=== PATIENT | male | born 1995 | race Two or more races ===

== ENCOUNTER 2017-03-12 21:20 | Emergency (ER) | payer OTHER ==
[~2017-03-12] VITALS: Ht 167.6 cm; Wt 77.1 kg
[2017-03-12 21:20] VITALS: BP 132/88
[2017-03-12] MEDS ORDERED: Acetaminophen 500mg (ES) tab ORAL ONE (21:45)
[2017-03-12] MEDS ORDERED: Phenytoin 100mg cap ORAL ONE (23:00)
--- NOTE | 2017-03-12 23:02 | Emergency Room Report ---
History of Present Illness General Chief Complaint: Seizure Source: Patient, EMS Present Illness HPI Is a 22-year-old male with a history of seizure. He's on 2 different medication for it. He is not driving because of seizure activity. He presents with chief complaint of seizure. He had a tonic-clonic seizure activity at work. Lasted about 2 minutes. He does have tongue abrasion. No incontinence of bowel or urine. No postictal period. No other complaint. Allergies: Coded Allergies: No Known Allergies (Unverified , 03/12/17) Patient History Past Medical History: see triage record, old chart reviewed, seizures Past Surgical History: other Pertinent Family History: none Social History: Denies: smoking Immunizations: other Reviewed Nursing Documentation: PMH: Agreed, PSxH: Agreed Nursing Documentation-PMH Past Medical History: No History, Except For Review of Systems Eye: Denies: blurred vision, eye pain ENT: Denies: ear pain, nose congestion, throat swelling Respiratory: Denies: cough, shortness of breath Cardiovascular: Denies: chest pain, palpitations Gastrointestinal: Denies: abdominal pain, diarrhea, nausea, vomiting Musculoskeletal: Denies: back pain, joint pain Skin: Denies: rash Neurological: Denies: headache, numbness Endocrine: Denies: increased thirst, increased urine Hematologic/Lymphatic: Denies: easy bruising All Other Systems: negative except mentioned in HPI Physical Exam Vital Signs Date Time Temp Pulse Resp B/P Pulse Ox O2 Delivery O2 Flow Rate FiO2 03/12/17 21:12 98.2 120 17 132/88 100 Room Air vitals with tachycardia Sp02 EP Interpretation: reviewed, normal General Appearance: well appearing, no apparent distress, alert Head: normocephalic, atraumatic Eyes: bilateral eye EOMI, bilateral eye PERRL ENT: hearing grossly normal, normal pharynx, other - Tongue abrasion on the left Neck: full range of motion, supple, no meningismus Respiratory: chest non-tender, lungs clear, normal breath sounds Cardiovascular #1: regular rate, rhythm, no murmur Gastrointestinal: normal bowel sounds, non tender, no mass, no organomegaly, no bruit, non-distended Musculoskeletal: back normal, gait/station normal, normal range of motion Psychiatric: mood/affect normal Skin: warm/dry Medical Decision Making Diagnostic Impression: Primary Impression: Epileptic seizure, generalized ER Course Patient presents with seizure activity secondary to subtherapeutic Dilantin level. He is back to baseline. Heart rate is an 80. I gave him a load of Dilantin here. We'll discharge home. Chest X-Ray Diagnostic Results Chest X-Ray Ordered: No Last Vital Signs Date Time Temp Pulse Resp B/P Pulse Ox O2 Delivery O2 Flow Rate FiO2 03/12/17 21:12 98.2 120 17 132/88 100 Room Air Status: improved Disposition: HOME, SELF-CARE Condition: Stable Patient Instructions: Seizure, Adult Additional Instructions: Take your seizure medication regularly. Followup with your Dr. in 3-5 days. Return if worse. RODRIGUEZ LEONE M.D. Mar 12, 2017 23:02
[2017-03-12 23:15] VITALS: BP 129/65
== END 2017-03-12 23:15 | disposition home or self-care (01) ==
LOC: EDBD 21:20 → EMR 23:00
DX: G40.909 Epilepsy, unspecified, not intractable, without status epilepticus (principal); S00.512A Abrasion of oral cavity, initial encounter; X58.XXXA Exposure to other specified factors, initial encounter; Y93.9 Activity, unspecified
CPT/HCPCS: 36415; 80185; 99283